=== PATIENT | female | born 1985 | race Caucasian/White ===

== ENCOUNTER 2024-06-17 09:56 | Emergency (ER) | payer MEDICARE ==
[~2024-06-17] VITALS: Ht 162.6 cm; Wt 102.3 kg
[2024-06-17 10:03] VITALS: TEMP 98.2
[2024-06-17] MEDS ORDERED: NS 1,000 ML IV ONE (10:45)
[2024-06-17 10:54] LABS: COLLECTION METHOD CLEAN CATCH
[2024-06-17 11:00] LABS: BASO % 0.3 % (0.0-2.0); EOS # 0.1 K/mm3 (0.0-0.7); EOS % 1.1 % (0.0-4.0); GRAN # 4.7 K/mm3 (1.4-6.5); GRAN % 71.9 % (42.2-75.2); HEMATOCRIT 39.4 % (37.0-47.0); LYMPH # 1.3 K/mm3 (1.2-3.4); LYMPH % 19.6 % (20.0-51.0); MEAN CELL VOLUME 91 fl (80.0-100.0); MEAN CORPUSCULAR HEMOGLOBIN 30 pg (27-31); MEAN CORPUSCULAR HGB CONC 33 g/dl (33.0-37.0); MEAN PLATELET VOLUME 11.6 fl (7.4-10.4); MONO # 0.4 K/mm3 (0.1-0.6); MONO % 6.8 % (1.7-9.3); PLATELET COUNT 194 K/mm3 (130-400); RED BLOOD COUNT 4.32 M/mm3 (4.10-5.30); REDCELL DISTRIBUTION WIDTH-CV 12.2 % (11.5-14.5)
[2024-06-17 11:06] LABS: PH 5.5 (5.0-8.5); URINE APPEARANCE CLEAR (CLEAR/HAZY); URINE BLOOD NEGATIVE (NEGATIVE); URINE COLOR YELLOW (YELLOW); URINE GLUCOSE NEGATIVE (NEGATIVE); URINE KETONE NEGATIVE (NEGATIVE); URINE NITRATE NEGATIVE (NEGATIVE); URINE PROTEIN(semi-quant) NEGATIVE (NEGATIVE); URINE UROBILINOGEN 0.2 E.U/dL (0.2-1.0)
[2024-06-17 11:14] LABS: ALBUMIN 3.9 g/dL (3.5-5.0); BILIRUBIN,TOTAL 0.4 mg/dL (0.2-1.2); CALCIUM 9.2 mg/dL (8.4-10.2); CREATININE, serum 0.85 mg/dL (0.57-1.11); POTASSIUM 3.7 mEq/L (3.5-4.5)
[2024-06-17 11:34] LABS: PROLACTIN 13.9 ng/mL (5.18-26.53)
[2024-06-17] MEDS ORDERED: levETIRAcetam 1,000 MG in Syringe 1 EACH IV ONE (13:15)
[2024-06-17] MEDS ORDERED: BIKTARVY 50-201 EACH PO (13:32)
[2024-06-17] MEDS ORDERED: MACROBID 1100 MG/CAP PO (13:32)
[2024-06-17] MEDS ORDERED: KEPPRA1000 MG PO (13:32)
[2024-06-17 13:57] VITALS: BP 137/78; PULSE 73
== END 2024-06-17 14:06 | disposition home or self-care (01) ==
LOC: COL.ER 09:56
PROVIDERS: Nurse Practitioner
DX: G40.909 Epilepsy, unspecified, not intractable, without status epilepticus (principal); N39.0 Urinary tract infection, site not specified; B20 Human immunodeficiency virus [HIV] disease; T50.996A Underdosing of other drugs, medicaments and biological substances, initial encounter; Z91.138 Patient's unintentional underdosing of medication regimen for other reason; Z79.899 Other long term (current) drug therapy; Z76.0 Encounter for issue of repeat prescription; Z88.0 Allergy status to penicillin; Z88.1 Allergy status to other antibiotic agents
CPT/HCPCS: J1953; J7030